=== PATIENT | female | born 1990 | race Caucasian/White ===

== ENCOUNTER 2020-08-26 22:38 | Emergency (ER) | payer SELFPAY ==
[~2020-08-26] VITALS: Ht 157.4 cm; Wt 92.3 kg
[2020-08-26] MEDS ORDERED: fentaNYL INJ 100 MCG/2 ML AMP IVP ONE (23:00)
[2020-08-26] MEDS ORDERED: ANTACID SUSP 30 ML UDC (MYLANTA) PO ONE (23:00)
[2020-08-26] MEDS ORDERED: ASPIRIN 81 MG CHEW (CHILDREN'S ASA) PO ONE (23:00)
[2020-08-26] MEDS ORDERED: LIDOCAINE 2% VISCOUS 15 ML UDC PO ONE (23:00)
[2020-08-26 23:19] LABS: BASOPHILS % (AUTO) 1 % (0-10); EOSINOPHILS % (AUTO) 2 % (0-10); HEMATOCRIT 37 % (35-52); HEMOGLOBIN 12.8 G/DL (11.5-16.0); LYMPHOCYTES % (AUTO) 38 % (12-44); MEAN CORPUSCULAR HEMOGLOBIN 30 PG (25-34); MEAN CORPUSCULAR HGB CONC 34 G/DL (32-36); MEAN CORPUSCULAR VOLUME 88 FL (80-99); MEAN PLATELET VOLUME 9.7 FL (7.4-10.4); MONOCYTES % (AUTO) 5 % (0-12); NEUTROPHILS % (AUTO) 54 % (42-75); PLATELET COUNT 347 10^3/uL (130-400); WHITE BLOOD COUNT 10.7 10^3/uL (4.3-11.0)
[2020-08-26 23:20] LABS: BASOPHILS # (AUTO) 0.1 10^3/uL (0.0-0.1); EOSINOPHILS # (AUTO) 0.3 10^3/uL (0.0-0.3); LYMPHOCYTES # (AUTO) 4.1 X 10^3 (1.0-4.0); MONOCYTES # (AUTO) 0.6 X 10^3 (0.0-1.0); NEUTROPHILS # (AUTO) 5.8 X 10^3 (1.8-7.8)
[2020-08-26 23:29] LABS: SMEAR SCAN COMMENT YES
[2020-08-26 23:37] LABS: ATYPICAL LYMPHOCYTES 4 %; EOSINOPHILS % (MANUAL) 3 %; LYMPHOCYTES % (MANUAL) 35 %; MONOCYTES % (MANUAL) 3 %; MYELOCYTES % 1 %; NEUTROPHILS % (MANUAL) 54 %
[2020-08-26 23:38] LABS: PLATELET ESTIMATE ADEQUATE; RBC MORPH NORMAL
[2020-08-26 23:41] LABS: BUN/CREATININE RATIO 10; CARBON DIOXIDE 22 MMOL/L (21-32); CHLORIDE 106 MMOL/L (98-107); CREATININE SERUM 0.59 MG/DL (0.60-1.30); GFR ESTIMATED > 60; POTASSIUM 3.4 MMOL/L (3.6-5.0); SODIUM 139 MMOL/L (135-145)
[2020-08-26 23:42] LABS: ALANINE AMINOTRANSFERASE 12 U/L (0-55); ALBUMIN 4.1 GM/DL (3.2-4.5); ALKALINE PHOSPHATASE 69 U/L (40-136); BILIRUBIN,TOTAL 0.4 MG/DL (0.1-1.0); CALCIUM 8.9 MG/DL (8.5-10.1); GLUCOSE 97 MG/DL (70-105); LIPASE 39 U/L (8-78); TOTAL PROTEIN 6.9 GM/DL (6.4-8.2)
[2020-08-26 23:58] LABS: BILIRUBIN,URINE NEGATIVE (NEGATIVE); CLARITY,URINE CLEAR; COLOR,URINE YELLOW; GLUCOSE, URINE (UA) NEGATIVE (NEGATIVE); KETONES,URINE NEGATIVE (NEGATIVE); LEUKOCYTE ESTERASE ,URINE NEGATIVE (NEGATIVE); NITRITE,URINE NEGATIVE (NEGATIVE); PROTEIN,URINE NEGATIVE (NEGATIVE)
[2020-08-26 23:59] LABS: BACTERIA,URINE FEW /HPF; WBC,URINE RARE /HPF
[2020-08-27] LABS: SQUAMOUS EPITHELIAL CELL,UR RARE /HPF
[2020-08-27] MEDS ORDERED: OMEP20TA33 PO (00:30)
--- NOTE | 2020-08-27 00:30 | ED General ---
General Chief Complaint: Chest Pain Stated Complaint: CHEST PAIN Nursing Triage Note: Patient states that she noticed the chest pain approximately 24-48 hours ago, she isn't sure which. Patient describes the pain as sharp, hurting more when she takes a deep breath. Patient complains of midsternal chest pain that radiates to both sides below the breasts. Patient states that it has improved since onset. Patient did state that she had a few alcoholic drinks this evening. History of Present Illness Date Seen by Provider: Aug 26, 2020 Time Seen by Provider: 23:11 Initial Comments Patient presenting to the emergency department for evaluation of chest pain that she says has been going on for the past 2 days intermittently. She describes it as an intense aching sensation in her lower chest and upper abdomen that does not radiate cause her nausea vomiting or shortness of breath. She says it starts while she is at rest and is not associated with activity eating or movements but she thinks deep breaths may make it feel worse. She denies having history of hypertension diabetes high cholesterol smoking or family history of heart disease. She denies being on control. She does say that she uses NSAIDs and drinks alcohol. She is in no acute distress with normal vital signs. Allergies and Home Medications Allergies Coded Allergies: No Known Drug Allergies (Unverified , 08/26/20) Patient Home Medication List Home Medication List Reviewed: Yes Review of Systems Review of Systems Constitutional: no symptoms reported Respiratory: no symptoms reported Cardiovascular: chest pain Gastrointestinal: abdominal pain Genitourinary: no symptoms reported Musculoskeletal: no symptoms reported Skin: no symptoms reported Psychiatric/Neurological: No Symptoms Reported All Other Systems Reviewed Negative Unless Noted: Yes Past [id number]-[id number] Hx Patient Social History Tobacco Use?: Yes Smoking Status: Current Everyday Smoker Use of E-Cig and/or Vaping Jaime: Current Everyday User Pt feels they are or have been: No Physical Exam Vital Signs Vital Signs - First Documented 08/26/20 22:41 Temp 37.0 Pulse 73 Resp 16 B/P (MAP) 142/89 (106) Pulse Ox 97 O2 Delivery Room Air Capillary Refill : Less Than 3 Seconds Height, Weight, BMI Height: '" Weight: lbs. oz. kg; 37.00 BMI Method: General Appearance: No Apparent Distress, WD/WN HEENT: PERRL/EOMI Neck: Supple Respiratory: Lungs Clear, No Respiratory Distress Cardiovascular: Regular Rate, Rhythm, No Edema, No Murmur Gastrointestinal: Soft, Tenderness (Tenderness to palpation in the epigastric region with no rebound or guarding) Extremity: Normal Capillary Refill, No Pedal Edema Neurologic/Psychiatric: Alert, Oriented x3 Skin: Warm/Dry Progress/Results/Core Measures Suspected Sepsis SIRS Temperature: Pulse: 73 Respiratory Rate: 16 Laboratory Tests 08/26/20 23:02: White Blood Count 10.7 Blood Pressure 142 /89 Mean: 106 Laboratory Tests 08/26/20 23:02: Creatinine 0.59L, Platelet Count 347, Total Bilirubin 0.4 Results/Orders Lab Results Laboratory Tests Test 08/26/20 22:54 08/26/20 23:02 Range/Units Urine Color YELLOW Urine Clarity CLEAR Urine pH 6.0 5-9 Urine Specific [place] <=1.005 1.016-1.022 Urine Protein NEGATIVE NEGATIVE Urine Glucose (UA) NEGATIVE NEGATIVE Urine Ketones NEGATIVE NEGATIVE Urine Nitrite NEGATIVE NEGATIVE Urine Bilirubin NEGATIVE NEGATIVE Urine Urobilinogen 0.2 < = 1.0 MG/DL Urine Leukocyte Esterase NEGATIVE NEGATIVE Urine RBC (Auto) TRACE H NEGATIVE Urine RBC NONE /HPF Urine WBC RARE /HPF Urine Squamous Epithelial Cells RARE /HPF Urine Crystals NONE /LPF Urine Bacteria FEW H /HPF Urine Casts NONE /LPF Urine Mucus NEGATIVE /LPF Urine Culture Indicated NO Urine Test NEGATIVE NEGATIVE White Blood Count 10.7 4.3-11.0 10^3/uL Red Blood Count 4.22 L 4.35-5.85 10^6/uL Hemoglobin 12.8 11.5-16.0 G/DL Hematocrit 37 35-52 % Mean Corpuscular Volume 88 80-99 FL Mean Corpuscular Hemoglobin 30 25-34 PG Mean Corpuscular Hemoglobin Concent 34 32-36 G/DL Red Cell Distribution Width 12.1 10.0-14.5 % Platelet Count 347 130-400 10^3/uL Mean Platelet Volume 9.7 7.4-10.4 FL Immature Granulocyte % (Auto) 1 % Neutrophils (%) (Auto) 54 42-75 % Lymphocytes (%) (Auto) 38 12-44 % Monocytes (%) (Auto) 5 0-12 % Eosinophils (%) (Auto) 2 0-10 % Basophils (%) (Auto) 1 0-10 % Neutrophils # (Auto) 5.8 1.8-7.8 X 10^3 Lymphocytes # (Auto) 4.1 H 1.0-4.0 X 10^3 Monocytes # (Auto) 0.6 0.0-1.0 X 10^3 Eosinophils # (Auto) 0.3 0.0-0.3 10^3/uL Basophils # (Auto) 0.1 0.0-0.1 10^3/uL Immature Granulocyte # (Auto) 0.1 0.0-0.1 10^3/uL Neutrophils % (Manual) 54 % Lymphocytes % (Manual) 35 % Monocytes % (Manual) 3 % Eosinophils % (Manual) 3 % Myelocytes % 1 % Atypical Lymphocytes 4 % Platelet Estimate ADEQUATE Blood Morphology Comment NORMAL Sodium Level 139 135-145 MMOL/L Potassium Level 3.4 L 3.6-5.0 MMOL/L Chloride Level 106 98-107 MMOL/L Carbon Dioxide Level 22 21-32 MMOL/L Anion Gap 11 5-14 MMOL/L Blood Urea Nitrogen 6 L 7-18 MG/DL Creatinine 0.59 L 0.60-1.30 MG/DL Estimat Glomerular Filtration Rate > 60 BUN/Creatinine Ratio 10 Glucose Level 97 70-105 MG/DL Calcium Level 8.9 8.5-10.1 MG/DL Corrected Calcium 8.8 8.5-10.1 MG/DL Total Bilirubin 0.4 0.1-1.0 MG/DL Aspartate Amino Transf (AST/SGOT) 16 5-34 U/L Alanine Aminotransferase (ALT/SGPT) 12 0-55 U/L Alkaline Phosphatase 69 40-136 U/L Troponin I < 0.30 <0.30 NG/ML Total Protein 6.9 6.4-8.2 GM/DL Albumin 4.1 3.2-4.5 GM/DL Lipase 39 8-78 U/L Smear Scan YES My Orders Orders - AYAAN PAIZ DO Cbc With Automated Diff (08/26/20 22:53) Comprehensive Metabolic Panel (08/26/20 22:53) Lipase (08/26/20 22:53) Troponin I Fs (08/26/20 22:53) Chest 1 View Ap/Pa Only (08/26/20 22:53) Ekg Tracing (08/26/20 22:53) Iv/Invasive Line Insertion .IV start (08/26/20 22:53) Lidocaine 2% Viscous 15 Ml (Xylocaine Vi (08/26/20 23:00) Fentanyl Inj (Sublimaze Injection) (08/26/20 23:00) Antacid Suspension (Mylanta Suspension (08/26/20 23:00) Aspirin Chewable Tablet (Baby Aspirin Ch (08/26/20 23:00) Ed Iv/Invasive Line Start (08/26/20 23:15) Manual Differential (08/26/20 23:02) Ua Culture If Indicated (08/26/20 23:44) Hcg,Qualitative Urine (08/26/20 23:44) Medications Given in ED Current Medications Medications Dose Ordered Sig/Jackson Route Start Time Stop Time Status Last Admin Dose Admin Al Hydrox/Mg Hydrox/Simethicone 30 ml ONCE ONCE PO 08/26/20 23:00 08/26/20 23:01 DC 08/26/20 23:09 30 ML Aspirin 324 mg ONCE ONCE PO 08/26/20 23:00 08/26/20 23:01 DC 08/26/20 23:08 324 MG Fentanyl Citrate 75 mcg ONCE ONCE IVP 08/26/20 23:00 08/26/20 23:01 DC 08/26/20 23:10 75 MCG Lidocaine HCl 5 ml ONCE ONCE PO 08/26/20 23:00 08/26/20 23:01 DC 08/26/20 23:09 5 ML Vital Signs/I&O 08/26/20 22:41 Temp 37.0 Pulse 73 Resp 16 B/P (MAP) 142/89 (106) Pulse Ox 97 O2 Delivery Room Air Capillary Refill : Less Than 3 Seconds Blood Pressure Mean: 106 Progress Note : Progress Note Patient with chest pain and abdominal pain that is most consistent with gastritis or esophagitis in my opinion. Her PERC score is equal to 0 and her heart score is equal to 0 as well. She feels much better after treatment here in the emergency department and is willing to go home. Given she appears well with normal vital signs benign physical exam and work-up she will be discharged in stable condition. I told her to start taking Prilosec and to change her diet avoid NSAIDs and alcohol and follow with primary care provider within the next 72 hours for recheck. Departure Impression Primary Impression: Chest pain at rest Additional Impression: Epigastric abdominal pain Disposition: HOME, SELF-CARE Condition: Stable Departure-Patient Inst. Referrals: NO,LOCAL PHYSICIAN (PCP/Family) Primary Care Physician Patient Instructions: Chest Pain (DC) Add. Discharge Instructions: Take Tums and Maalox for immediate relief Soft non-irritating diet Avoid nsaids and alcohol PCP f/u as soon as you can All discharge instructions reviewed with patient and/or family. Voiced understanding. Scripts Omeprazole Magnesium (Prilosec Otc) 20 Mg Tablet. 20 MG PO DAILY, #14 TAB Prov: AYAAN PAIZ DO 08/27/20 AYAAN PAIZ DO Aug 27, 2020 00:30
[2020-08-27 00:32] VITALS: BP 112/61
--- NOTE | 2020-08-27 06:03 | Diagnostic Imaging Report ---
INDICATION: Chest pain COMPARISON: None available TECHNIQUE: Single radiograph of the chest dated 08/26/2020 FINDINGS: The cardiac silhouette and pulmonary vasculature are within normal limits. The lungs are clear. No pleural effusion. No pneumothorax. No acute osseous abnormality. IMPRESSION: No acute cardiopulmonary abnormality. Dictated by: Dictated on workstation # [id number]
== END 2020-08-27 00:32 | disposition home or self-care (01) ==
LOC: EDUNIT# 22:38 → ER FS 22:40
DX: R07.9 Chest pain, unspecified (principal); R10.13 Epigastric pain; F17.200 Nicotine dependence, unspecified, uncomplicated
CPT/HCPCS: 36415; 71045; 80053; 81000; 83690; 84484; 84703; 85007; 85027; 93005